=== PATIENT | female | born 1995 | race Hispanic/Latino ===

== ENCOUNTER 2022-04-08 09:18 | Inpatient (IN) | payer MEDICAID, OTHER, SELFPAY ==
[~2022-04-08 09:18] MED LIST: Bupivacaine 0.25% HCL 30 ML VIAL ONE; ePHEDrine Sulfate 50 MG/10 ML VIAL ONE
[2022-04-08] MEDS ORDERED: hydrALAZINE 20 MG/ML VIAL SLOW IVP PRN ×2 (10:31→17:04)
[2022-04-08] MEDS ORDERED: Ondansetron PF 4 MG/2 ML Vial IVP PRN ×3 (10:31→17:04)
[2022-04-08] MEDS ORDERED: Ibuprofen 800 MG TAB PO PRN (10:31)
[2022-04-08] MEDS ORDERED: Promethazine HCl 25 MG/ML VIAL IM PRN ×3 (10:31→17:04)
[2022-04-08] MEDS ORDERED: Acetaminophen 500 MG TAB PO PRN (10:31)
[2022-04-08] MEDS ORDERED: Butorphanol Tartrate 1 MG/ML VIAL SLOW IVP PRN (10:31)
[2022-04-08] MEDS ORDERED: Lidocaine 1% (PF) 30 ML VIAL SC PRN (10:31)
[2022-04-08] MEDS ORDERED: Lactated Ringer's 1,000 ML IV SCH (10:45)
[2022-04-08] MEDS ORDERED: Penicillin G Potassium 5 MILL.UNITS in Sodium Chloride 0.9% 100 ML IVPB SCH (10:45)
[2022-04-08] MEDS ORDERED: Penicillin G 2.5 MILL.units 2.5 MILL.UNITS in Premix Bag 1 BAG IVPB SCH (10:45)
[2022-04-08] MEDS ORDERED: Misoprostol 100 MCG TAB VAG SCH ×2 (10:45)
[2022-04-08] MEDS ORDERED: NS w/ Oxytocin 30 units 500 ML IV SCH ×2 (10:45)
[2022-04-08] MEDS ORDERED: Fentanyl 2 mcg/Bup 0.1% Cadd 100 ML ONE (10:48)
[2022-04-08 10:49] LABS: Hemoglobin 13.7 g/dL (12.0-15.5); Mean Corpuscular HGB CONC 32.9 g/dL (32.0-36.0); Mean Corpuscular Hemoglobin 28.6 pg (27.0-33.0); Mean Corpuscular Volume 87.1 fl (81.6-98.3); Mean Platelet Volume 11.5 fl (7.4-10.4); Platelet Count 200 10x3/uL (150-450); RBC Distribution Width 14.3 % (11.5-14.5); Red Blood Cell (RBC) Count 4.79 10x6/uL (3.90-5.03); White Blood Cell (WBC) Count 13.8 10x3/uL (3.5-10.5)
[2022-04-08] MEDS ORDERED: NS w/ Oxytocin 30 units 500 ML ONE ×2 (10:52→16:51)
[2022-04-08] MEDS ORDERED: Penicillin G Potassium 5 MILL.UNITS VIAL ONE (10:52)
[2022-04-08] MEDS ORDERED: Moisturizing Cream (Eucerin) 113 GM JAR TOP PRN (11:26)
[2022-04-08] MEDS ORDERED: diphenhydrAMINE 50 MG/ML VIAL IVP PRN (11:26)
[2022-04-08] MEDS ORDERED: ePHEDrine Sulfate 50 MG/10 ML VIAL SLOW IVP PRN (11:26)
[2022-04-08] MEDS ORDERED: Acetaminophen 325 MG TAB PO PRN (11:26)
[2022-04-08] MEDS ORDERED: Naloxone HCl 0.4 mg/ml Vial IVP PRN ×2 (11:26)
[2022-04-08] MEDS ORDERED: Lactated Ringer's 500 ML IV PRN (11:26)
[2022-04-08 11:28] VITALS: BMI 37.7
[2022-04-08] MEDS ORDERED: Fentanyl 2 mcg/Bupivacaine 0.1% Cassette 100 ML EPIDURAL SCH (11:30)
[2022-04-08] MEDS ORDERED: Communication Order-Pharmacy FS SCH (11:30)
[2022-04-08 11:36] LABS: HBSAg Index 0.18 S/CO (0-0.99); Hep B Surf Ag Non-Reactive S/CO (NonReactive); Syphilis Antibody Nonreactive (Nonreactive); Syphilis Antibody Index 0.03 S/CO (<1.00 Non-Reactive)
[2022-04-08] MEDS ORDERED: Boostrix 0.5 ML (Tdap) VIAL (>/=7 yrs of age) IM ONE (17:04)
[2022-04-08] MEDS ORDERED: Milk Of Magnesia 30 ML UDCUP PO PRN (17:04)
[2022-04-08] MEDS ORDERED: Benzocaine-Menthol 82.5 ML CAN TOP PRN (17:04)
[2022-04-08] MEDS ORDERED: HYDROcodone/Acetaminophen 5/325 mg Tablet PO PRN ×2 (17:04)
[2022-04-08] MEDS ORDERED: Bisacodyl 10 MG SUPP PR PRN (17:04)
[2022-04-08] MEDS ORDERED: Lanolin Ointment 7 GM TUBE TOP PRN (17:04)
[2022-04-08] MEDS ORDERED: diphenhydrAMINE 25 MG CAP PO PRN (17:04)
[2022-04-08 18:18] LABS: SARS-CoV-2 NAA Rapid Test Not Detected (NotDetected)
[2022-04-08] MEDS ORDERED: Ferrous Sulfate 325 MG TAB PO SCH (18:45)
[2022-04-08] MEDS: Ibuprofen 800 MG TAB PO SCH (19:58)
[2022-04-08] MEDS: Docusate 100 MG CAP PO SCH (21:34)
[2022-04-09] MEDS: Ibuprofen 800 MG TAB PO SCH ×3 (03:52→13:23)
[2022-04-09] MEDS: Ferrous Sulfate 325 MG TAB PO SCH ×3 (09:16→14:49)
[2022-04-09] MEDS: Prenatal Vitamin 1 TAB PO SCH (09:16)
[2022-04-09] MEDS: Docusate 100 MG CAP PO SCH ×2 (09:17→20:21)
[2022-04-10] MEDS: Ibuprofen 800 MG TAB PO SCH ×2 (02:35→10:31)
[2022-04-10 08:13] VITALS: BP 114/61; TEMP 98.1
[2022-04-10] MEDS: Ferrous Sulfate 325 MG TAB PO SCH (08:52)
[2022-04-10] MEDS: Prenatal Vitamin 1 TAB PO SCH (08:53)
[2022-04-10] MEDS: Docusate 100 MG CAP PO SCH (08:53)
== END 2022-04-10 16:00 | disposition home or self-care (01) | DRG 807 ==
LOC: CSHLD/OP 09:18 → CSHLD 10:22 → CSHPP 18:30
PROVIDERS: ADMIT Family Medicine; ATTEND Family Medicine
PROC: 10E0XZZ Delivery of Products of Conception, External Approach (ICD-10-PCS; principal; 2022-04-08)
DX: O42.02 Full-term premature rupture of membranes, onset of labor within 24 hours of rupture (principal); Z37.0 Single live birth; Z20.822 Contact with and (suspected) exposure to COVID-19; O99.824 Streptococcus B carrier state complicating childbirth; Z3A.38 38 weeks gestation of pregnancy; Z79.899 Other long term (current) drug therapy
CPT/HCPCS: 36415; 51702; 85027; 86780; 86850; 86900; 86901; 87340; 99285; J2001; J2540; J2590; S0020; U0002